=== PATIENT | male | born 1955 ===

== ENCOUNTER 2017-10-26 13:39 | Emergency (ER) | payer BC, OTHER ==
[2017-10-26 13:55] VITALS: TEMP 98
[2017-10-26 14:23] VITALS: RESP 22
[2017-10-26 14:24] VITALS: BP 154/103; PULSE 63; O2SAT 99
== END 2017-10-26 14:20 | disposition home or self-care (01) ==
LOC: ED 13:39
DX: M06.9 Rheumatoid arthritis, unspecified (principal); M25.511 Pain in right shoulder
CPT/HCPCS: 99282

== ENCOUNTER 2018-01-29 19:26 | Emergency (ER) | payer OTHER ==
[2018-01-29 19:27] VITALS: O2SAT 99
[2018-01-29 19:52] VITALS: BP 156/99; PULSE 92; RESP 20; TEMP 97.4
[2018-01-29] MEDS ORDERED: PANTOPRAZOLE SODIUM 40 MG ECT PO ONE ×2 (19:56→19:57)
== END 2018-01-29 20:06 | disposition home or self-care (01) ==
LOC: ED 19:26
DX: K21.9 Gastro-esophageal reflux disease without esophagitis (principal)
CPT/HCPCS: 99282; A9270-GY

== ENCOUNTER 2018-01-30 05:30 | Emergency (ER) | payer OTHER ==
[2018-01-30] MEDS ORDERED: ALBUTEROL/IPRATROPIUM 1 VIAL SOL INH PRN (06:04)
[2018-01-30 06:07] LABS: BASOPHILS % (AUTO) 1 % (0-3); EOSINOPHILS % (AUTO) 2 % (0-9); HEMATOCRIT 33 % (39-53); MEAN CORPUSCULAR HGB CONC 34.6 gm/dl (32.0-36.0); MEAN CORPUSCULAR VOLUME 82 fL (80-100); MONOCYTES % (AUTO) 5.8 % (0-12); NEUTROPHILS % (AUTO) 72.8 % (37-80)
[2018-01-30] MEDS ORDERED: ALBUTEROL/IPRATROPIUM 1 VIAL SOL ONE (06:13)
[2018-01-30 06:22] LABS: ALBUMIN 2.9 gm/dl (3.4-5.0); CALCIUM 7.9 mg/dl (8.5-10.1); POTASSIUM 3.1 mMol/L (3.5-5.1)
[2018-01-30] MEDS: ACETAMINOPHEN 325 MG PO ONE ×2 (06:30→06:35)
[2018-01-30] MEDS ORDERED: ACETAMINOPHEN 500 MG 500 MG TAB PO ONE (06:30)
[2018-01-30] MEDS ORDERED: ACETAMINOPHEN 500 MG 500 MG TAB ONE (06:41)
[2018-01-30 06:47] VITALS: TEMP 96.9
[2018-01-30 06:55] LABS: APPEARANCE,URINE Clear; BILIRUBIN,URINE NEGATIVE (NEGATIVE); COLOR,URINE Yellow; GLUCOSE, URINE (UA) NEGATIVE (NEGATIVE); KETONES,URINE NEGATIVE (NEGATIVE); LEUKOCYTE ESTERASE ,URINE NEGATIVE (NEGATIVE); NITRATE,URINE NEGATIVE (NEGATIVE); OCCULT BLOOD,URINE NEGATIVE (NEG-TRACE); PH,URINE 7.5; UROBILINOGEN,URINE 0.2 (0.2-1.0 EU)
[2018-01-30 07:09] VITALS: O2SAT 96
[2018-01-30] MEDS ORDERED: KETOROLAC TROMETHAMINE 30 MG/ML SOL IM ONE ×2 (07:17→07:18)
[2018-01-30] MEDS ORDERED: KETOROLAC TROMETHAMINE 30 MG/ML SOL ONE (07:18)
[2018-01-30 07:25] VITALS: BP 138/99; PULSE 92; RESP 30
[2018-01-30 07:41] LABS: RBC,URINE NEG (0-3AV/HPF); WBC,URINE NEG (0-5AV/HPF)
== END 2018-01-30 07:50 | disposition home or self-care (01) ==
LOC: ED 05:30
DX: M54.6 Pain in thoracic spine (principal); R06.00 Dyspnea, unspecified
CPT/HCPCS: 36415; 71046; 72070; 72120; 73521; 80053; 81001; 85025; 93005; 99285; J1885

== ENCOUNTER 2018-02-09 14:52 | Inpatient (IN) | payer OTHER ==
[2018-02-09] MEDS ORDERED: ALBUTEROL/IPRATROPIUM 1 VIAL SOL INH ONE (15:19)
[2018-02-09] MEDS ORDERED: CLONAZEPAM 0.5 MG TAB PO ONE (15:20)
[2018-02-09 15:38] LABS: BASOPHILS % (AUTO) 1 % (0-3); EOSINOPHILS % (AUTO) 5 % (0-9); HEMATOCRIT 36 % (39-53); MEAN CORPUSCULAR HGB CONC 31.7 gm/dl (32.0-36.0); MEAN CORPUSCULAR VOLUME 85 fL (80-100); NEUTROPHILS % (AUTO) 71.2 % (37-80)
[2018-02-09 15:53] LABS: CALCIUM 8.5 mg/dl (8.5-10.1); POTASSIUM 3.3 mMol/L (3.5-5.1)
[2018-02-09 16:02] LABS: ANISOCYTOSIS SLIGHT AMT; OVALOCYTES PRESENT; TARGET CELLS OCCASIONAL
[2018-02-09] MEDS ORDERED: FUROSEMIDE 40 MG SOL IV ONE (16:03)
[2018-02-09] MEDS ORDERED: FUROSEMIDE 40 MG SOL ONE (16:11)
[2018-02-09] MEDS ORDERED: ALBUTEROL/IPRATROPIUM 1 VIAL SOL ONE (16:11)
[2018-02-09] MEDS ORDERED: CLONAZEPAM 0.5 MG TAB ONE (16:12)
[2018-02-09] MEDS ORDERED: ENALAPRILAT 1.25 MG/ML IV ONE ×2 (16:59→17:01)
[2018-02-09] MEDS ORDERED: METOPROLOL TARTRATE 25 MG TAB PO ONE (17:15)
[2018-02-09] MEDS ORDERED: METOPROLOL TARTRATE 25 MG TAB ONE (17:20)
[2018-02-09] MEDS ORDERED: HYDROXYZINE HCL 25 MG PO PRN (17:26)
[2018-02-09] MEDS ORDERED: ACETAMINOPHEN 325 MG PO PRN (17:33)
[2018-02-09] MEDS ORDERED: ALUMINUM/MAGNESIUM 30 ML SUS PO PRN (17:33)
[2018-02-09 17:42] LABS: AMPHETAMINES NEGATIVE (NEGATIVE); METHADONE NEGATIVE (NEGATIVE); OPIATES(OP13) NEGATIVE (NEGATIVE); OXYCODONE(OXY) NEGATIVE (NEGATIVE); PROPOXYPHENE(PPX) NEGATIVE (NEGATIVE); TRICYCLIC ANTIDEPRESSANTS NEGATIVE (NEGATIVE)
[2018-02-09] MEDS ORDERED: SOLUMEDROL 125 MG/2 ML 125 MG/2 ML PDS IV ONE (18:00)
[2018-02-09 18:14] LABS: ABG PH 7.48 (7.35-7.45)
[2018-02-09] MEDS: ALBUTEROL/IPRATROPIUM 1 VIAL SOL INH SCH ×2 (18:19→23:42)
[2018-02-09] MEDS ORDERED: POTASSIUM CHLORIDE 10 MEQ CAPSULE PO SCH (21:00)
[2018-02-09] MEDS ORDERED: CLONAZEPAM 0.5 MG TAB PO SCH (21:00)
[2018-02-09] MEDS: METOPROLOL TARTRATE 25 MG TAB PO SCH (21:24)
[2018-02-09] MEDS: POTASSIUM CHLORIDE 10 MEQ TER PO SCH (21:32)
[2018-02-09] MEDS: FUROSEMIDE 40 MG SOL IV SCH (21:33)
[2018-02-09] MEDS: SOLUMEDROL 125 MG/2 ML 125 MG/2 ML PDS IV SCH (23:43)
[2018-02-10] MEDS: ALBUTEROL/IPRATROPIUM 1 VIAL SOL INH SCH ×4 (05:39→23:33)
[2018-02-10] MEDS: SOLUMEDROL 125 MG/2 ML 125 MG/2 ML PDS IV SCH ×4 (05:41→23:32)
[2018-02-10] MEDS: SODIUM CHLORIDE 0.9% FLUSH 10 ML SOL IV SCH ×8 (06:30→23:36)
[2018-02-10] MEDS: PANTOPRAZOLE SODIUM 40 MG ECT PO SCH (06:32)
[2018-02-10] MEDS ORDERED: OMEPRAZOLE 20 MG CAPSULE PO SCH (07:00)
[2018-02-10 07:32] LABS: BASOPHILS % (AUTO) 0 % (0-3); EOSINOPHILS % (AUTO) 0 % (0-9); HEMATOCRIT 36 % (39-53); MEAN CORPUSCULAR HGB CONC 32.2 gm/dl (32.0-36.0); MEAN CORPUSCULAR VOLUME 87 fL (80-100); MONOCYTES % (AUTO) 1.4 % (0-12); NEUTROPHILS % (AUTO) 87.7 % (37-80)
[2018-02-10 07:47] LABS: ALBUMIN 2.5 gm/dl (3.4-5.0); CALCIUM 8.1 mg/dl (8.5-10.1); POTASSIUM 3.4 mMol/L (3.5-5.1); THYROID STIMULATING HORMONE 0.593 uIU/ml (0.358-3.740)
[2018-02-10 08:17] LABS: ANISOCYTOSIS SLIGHT AMT; OVALOCYTES PRESENT; TARGET CELLS PRESENT
[2018-02-10] MEDS ORDERED: CLONAZEPAM 0.5 MG TAB PO PRN (08:20)
[2018-02-10] MEDS: POTASSIUM CHLORIDE 10 MEQ TER PO SCH ×2 (09:27→21:05)
[2018-02-10] MEDS: FOLIC ACID 1 MG TAB PO SCH (09:27)
[2018-02-10] MEDS: FUROSEMIDE 40 MG SOL IV SCH ×2 (09:29→19:30)
[2018-02-10] MEDS: METOPROLOL TARTRATE 25 MG TAB PO SCH ×2 (09:30→21:04)
[2018-02-10] MEDS: ENOXAPARIN 40 MG SOL SC SCH (09:31)
[2018-02-10] MEDS: LISINOPRIL 5 MG TAB PO SCH (09:32)
[2018-02-10] MEDS ORDERED: ALBUTEROL NEB SOL 2.5MG/3ML 1 VIAL SOL NEB PRN (14:12)
[2018-02-11] MEDS: ALBUTEROL/IPRATROPIUM 1 VIAL SOL INH SCH ×2 (06:04→11:51)
[2018-02-11] MEDS: SOLUMEDROL 125 MG/2 ML 125 MG/2 ML PDS IV SCH (06:05)
[2018-02-11] MEDS: SODIUM CHLORIDE 0.9% FLUSH 10 ML SOL IV SCH ×2 (06:05→06:15)
[2018-02-11] MEDS: FUROSEMIDE 40 MG SOL IV SCH (06:13)
[2018-02-11] MEDS: PANTOPRAZOLE SODIUM 40 MG ECT PO SCH (07:02)
[2018-02-11 07:32] LABS: CALCIUM 8.6 mg/dl (8.5-10.1); POTASSIUM 4.1 mMol/L (3.5-5.1)
[2018-02-11] MEDS ORDERED: ALBUTEROL HFA 60 PUFF/INHALER INH PRN (08:32)
[2018-02-11] MEDS: FOLIC ACID 1 MG TAB PO SCH (08:40)
[2018-02-11] MEDS: POTASSIUM CHLORIDE 10 MEQ TER PO SCH (08:40)
[2018-02-11] MEDS: METOPROLOL TARTRATE 25 MG TAB PO SCH (08:40)
[2018-02-11] MEDS: ENOXAPARIN 40 MG SOL SC SCH (08:41)
[2018-02-11] MEDS: LISINOPRIL 5 MG TAB PO SCH (08:42)
[2018-02-11] MEDS ORDERED: PREDNISONE 20 MG TAB PO SCH (09:00)
[2018-02-11] MEDS ORDERED: BUDESONIDE/FORMOTEROL 80/4.5 1 PUFF AER IH SCH (09:00)
[2018-02-11 10:34] VITALS: BP 122/78; TEMP 97.2
[2018-02-11 11:57] VITALS: PULSE 84; RESP 40; O2SAT 91
[2018-02-11] MEDS ORDERED: SODIUM CHLORIDE 0.9% FLUSH 10 ML SOL IV SCH (15:00)
== END 2018-02-11 12:30 | disposition home or self-care (01) | DRG 140 ==
LOC: ED 14:52 → ACUTE CARE 17:16
PROVIDERS: ADMIT Emergency Medicine; ATTEND Emergency Medicine
PROC: 5A09357 Assistance with Respiratory Ventilation, Less than 24 Consecutive Hours, Continuous Positive Airway Pressure (ICD-10-PCS; principal; 2018-02-09)
DX: J44.9 Chronic obstructive pulmonary disease, unspecified (principal); F41.9 Anxiety disorder, unspecified; Z72.0 Tobacco use; I51.7 Cardiomegaly; G47.33 Obstructive sleep apnea (adult) (pediatric)
CPT/HCPCS: 36415; 36600; 71045; 71046; 71275; 80048; 80053; 80305; 82803; 83735; 83880; 84443; 84484; 85025; 85378; 93005; 93306; 94150; 94640; 94660; 94664; 94762; 99285; J1650; J1940; J2930; Q9957; Q9967; A9270-GY; J3490

== ENCOUNTER 2018-04-05 10:27 | Emergency (ER) | payer OTHER ==
[2018-04-05 10:40] VITALS: RESP 24; TEMP 97.1; O2SAT 97
[2018-04-05 11:33] VITALS: BP 132/93; PULSE 84
== END 2018-04-05 11:13 | disposition home or self-care (01) ==
LOC: ED 10:27
DX: K04.7 Periapical abscess without sinus (principal)
CPT/HCPCS: 99282

== ENCOUNTER 2018-04-11 20:58 | Emergency (ER) | payer OTHER ==
[2018-04-11] MEDS ORDERED: ONDANSETRON 4 MG ODT BU ONE (21:26)
[2018-04-11] MEDS ORDERED: ONDANSETRON 4 MG ODT ONE (21:29)
[2018-04-11 21:45] VITALS: BP 150/101; PULSE 101; RESP 20; TEMP 96.4; O2SAT 99
== END 2018-04-11 22:18 | disposition home or self-care (01) ==
LOC: ED 20:58
DX: R11.0 Nausea (principal)
CPT/HCPCS: 99282; A9270-GY

== ENCOUNTER 2018-04-13 22:28 | Emergency (ER) | payer OTHER ==
[2018-04-13] MEDS ORDERED: ONDANSETRON 4 MG ODT BU ONE (22:58)
[2018-04-13] MEDS ORDERED: SODIUM CHLORIDE 0.9% 1000ML 1,000 ML IV SCH (23:00)
[2018-04-13] MEDS ORDERED: ONDANSETRON 4 MG ODT ONE (23:09)
[2018-04-13] MEDS ORDERED: SODIUM CHLORIDE 0.9% FLUSH 10 ML SOL IV PRN (23:13)
[2018-04-13 23:15] LABS: BASOPHILS % (AUTO) 1 % (0-3); EOSINOPHILS % (AUTO) 2 % (0-9); HEMATOCRIT 32 % (39-53); HEMOGLOBIN 11.2 gm/dl (13.5-17.7); LYMPHOCYTES % (AUTO) 22.4 % (10-50); MEAN CORPUSCULAR HEMOGLOBIN 28.2 pg (27.0-32.0); MONOCYTES % (AUTO) 1.4 % (0-12); NEUTROPHILS % (AUTO) 73.6 % (37-80)
[2018-04-13 23:16] LABS: MEAN CORPUSCULAR VOLUME 80 fL (80-100)
[2018-04-13 23:24] LABS: APPEARANCE,URINE Clear; BILIRUBIN,URINE NEGATIVE (NEGATIVE); COLOR,URINE Dark yellow; GLUCOSE, URINE (UA) NEGATIVE (NEGATIVE); KETONES,URINE NEGATIVE (NEGATIVE); LEUKOCYTE ESTERASE ,URINE NEGATIVE (NEGATIVE); NITRATE,URINE NEGATIVE (NEGATIVE); OCCULT BLOOD,URINE NEGATIVE (NEG-TRACE); PH,URINE 5.5
[2018-04-13] MEDS ORDERED: ALBUTEROL/IPRATROPIUM 1 VIAL SOL INH ONE (23:27)
[2018-04-13 23:29] LABS: ALBUMIN 2.9 gm/dl (3.4-5.0); BILIRUBIN,TOTAL 0.5 mg/dl (0.2-1.0); CALCIUM 7.9 mg/dl (8.5-10.1); CARBON DIOXIDE 24.2 mEq/L (21-32); CREATININE 1.11 mg/dl (0.80-1.30); POTASSIUM 4.1 mMol/L (3.5-5.1); TOTAL PROTEIN 7.3 gm/dl (6.4-8.2)
[2018-04-13 23:30] LABS: ALCOHOL 0.003 gm/dl (0.000-0.08)
[2018-04-13] MEDS ORDERED: ALBUTEROL/IPRATROPIUM 1 VIAL SOL ONE (23:31)
[2018-04-13 23:43] LABS: CRYSTALS NEGATIVE (0-3 AVE/HPF); EPITHELIAL CELLS NEGATIVE (SQUAMOUS); RBC,URINE NEG (0-3AV/HPF); WBC,URINE NEG (0-5AV/HPF)
[2018-04-13 23:44] VITALS: RESP 26
[2018-04-13 23:44] LABS: AMPHETAMINES NEGATIVE (NEGATIVE); BACTERIA NEGATIVE (< 1+); BARBITUATES NEGATIVE (NEGATIVE); BENZODIAZEPINES NEGATIVE (NEGATIVE); CANNABINOL(THC) NEGATIVE (NEGATIVE); COCAINE(COC) NEGATIVE (NEGATIVE); METHADONE NEGATIVE (NEGATIVE); METHAMPHETAMINES NEGATIVE (NEGATIVE); OPIATES(OP13) NEGATIVE (NEGATIVE); OXYCODONE(OXY) NEGATIVE (NEGATIVE); PROPOXYPHENE(PPX) NEGATIVE (NEGATIVE); TRICYCLIC ANTIDEPRESSANTS NEGATIVE (NEGATIVE)
[2018-04-13] MEDS ORDERED: LEVOFLOXACIN 500 MG TAB PO ONE (23:54)
[2018-04-14] MEDS ORDERED: LEVOFLOXACIN 500 MG TAB ONE (00:17)
[2018-04-14] MEDS ORDERED: PROCHLORPERAZINE MALEATE 5 MG TAB PO ONE (00:22)
[2018-04-14] MEDS ORDERED: PROCHLORPERAZINE MALEATE 5 MG TAB ONE (00:25)
[2018-04-14 00:59] VITALS: BP 134/96; PULSE 87; TEMP 96.5; O2SAT 93
== END 2018-04-14 00:48 | disposition home or self-care (01) ==
LOC: ED 22:28
DX: J18.9 Pneumonia, unspecified organism (principal); R11.0 Nausea; F41.9 Anxiety disorder, unspecified; J44.9 Chronic obstructive pulmonary disease, unspecified
CPT/HCPCS: 36415; 71046; 80053; 80305; 80307; 81001; 85025; 96365; 99283; 99284; Q0164; A9270-GY

== ENCOUNTER 2018-05-11 00:51 | Emergency (ER) | payer OTHER ==
[2018-05-11] MEDS ORDERED: HYDROMORPHONE 1 MG/ML SYRINGE IV ONE (01:05)
[2018-05-11] MEDS ORDERED: HYDROMORPHONE HCL 2 MG/ML SOL ONE ×2 (01:07→02:19)
[2018-05-11] MEDS ORDERED: FUROSEMIDE 40 MG SOL IV ONE (01:07)
[2018-05-11] MEDS ORDERED: FUROSEMIDE 40 MG SOL ONE (01:09)
[2018-05-11 01:54] LABS: ALBUMIN 2.2 gm/dl (3.4-5.0); BILIRUBIN,TOTAL 0.9 mg/dl (0.2-1.0); CALCIUM 8.4 mg/dl (8.5-10.1); CARBON DIOXIDE 31.8 mEq/L (21-32); CREATININE 1.11 mg/dl (0.80-1.30); HEMATOCRIT 32 % (39-53); HEMOGLOBIN 10.6 gm/dl (13.5-17.7); MEAN CORPUSCULAR HEMOGLOBIN 26.7 pg (27.0-32.0); MEAN CORPUSCULAR HGB CONC 33.3 gm/dl (32.0-36.0); MEAN CORPUSCULAR VOLUME 80 fL (80-100); POTASSIUM 3.1 mMol/L (3.5-5.1)
[2018-05-11] MEDS ORDERED: SODIUM CHLORIDE 0.9% FLUSH 10 ML SOL IV PRN (02:10)
[2018-05-11] MEDS ORDERED: HYDROMORPHONE HCL 2 MG/ML SOL IV ONE (02:17)
[2018-05-11 02:22] LABS: APPEARANCE,URINE Clear; BILIRUBIN,URINE 1+ (NEGATIVE); COLOR,URINE Dark yellow; GLUCOSE, URINE (UA) NEGATIVE (NEGATIVE); KETONES,URINE NEGATIVE (NEGATIVE); LEUKOCYTE ESTERASE ,URINE NEGATIVE (NEGATIVE); NITRATE,URINE NEGATIVE (NEGATIVE); OCCULT BLOOD,URINE NEGATIVE (NEG-TRACE); UROBILINOGEN,URINE >=8.0 (0.2-1.0 EU)
[2018-05-11 02:31] VITALS: TEMP 96.5
[2018-05-11 02:39] LABS: ANISOCYTOSIS SLIGHT AMT; BAND NEUTROPHILS % (MANUAL) 0 %; BASOPHILS % (MANUAL) 0 % (0-3); EOSINOPHILS % (MANUAL) 4 % (0-9); LYMPHOCYTES % (MANUAL) 80 % (10-50); MONOCYTES % (MANUAL) 8 % (0-12); NEUTROPHILS % (MANUAL) 8 % (37-80); OVALOCYTES PRESENT; POIKILOCYTOSIS SLIGHT AMT
[2018-05-11 03:05] LABS: HEMATOCRIT 32 % (39-53); HEMOGLOBIN 10.8 gm/dl (13.5-17.7); MEAN CORPUSCULAR HEMOGLOBIN 26.6 pg (27.0-32.0); MEAN CORPUSCULAR HGB CONC 33.3 gm/dl (32.0-36.0)
[2018-05-11 03:07] LABS: MEAN CORPUSCULAR VOLUME 80 fL (80-100)
[2018-05-11 03:22] LABS: BACTERIA TRACE (< 1+); CRYSTALS NEGATIVE (0-3 AVE/HPF); EPITHELIAL CELLS NEGATIVE (SQUAMOUS); ICTOTEST,URINE NEGATIVE (NEGATIVE); RBC,URINE NEG (0-3AV/HPF); WBC,URINE NEG (0-5AV/HPF)
[2018-05-11 03:31] VITALS: BP 130/88; PULSE 100; RESP 17; O2SAT 94
[2018-05-11 03:48] LABS: ANISOCYTOSIS SLIGHT AMT; BAND NEUTROPHILS % (MANUAL) 0 %; BASOPHILS % (MANUAL) 0 % (0-3); EOSINOPHILS % (MANUAL) 11 % (0-9); LYMPHOCYTES % (MANUAL) 79 % (10-50); MONOCYTES % (MANUAL) 2 % (0-12); NEUTROPHILS % (MANUAL) 8 % (37-80); OVALOCYTES PRESENT; POIKILOCYTOSIS SLIGHT AMT
[2018-05-11] MEDS ORDERED: CLOTRIMAZOLE 1% CREAM TOP ONE (04:01)
== END 2018-05-11 04:08 | disposition short-term general hospital (02) ==
LOC: ED 00:51
DX: I50.43 Acute on chronic combined systolic (congestive) and diastolic (congestive) heart failure (principal); D72.819 Decreased white blood cell count, unspecified; R60.0 Localized edema; I87.2 Venous insufficiency (chronic) (peripheral); R22.2 Localized swelling, mass and lump, trunk
CPT/HCPCS: 71045; 80053; 81001; 83880; 84484; 85007; 85027; 93005; 96374; 96375; 99284; 99285; J1170; J1940; A9270-GY

== ENCOUNTER 2018-06-02 08:08 | Emergency (ER) | payer OTHER ==
[2018-06-02] MEDS ORDERED: ONDANSETRON 4 MG ODT BU ONE (08:20)
[2018-06-02] MEDS ORDERED: ONDANSETRON 4 MG ODT ONE (08:25)
[2018-06-02 08:32] VITALS: RESP 28; TEMP 97.4
[2018-06-02] MEDS ORDERED: ALBUTEROL/IPRATROPIUM 1 VIAL SOL INH ONE (08:52)
[2018-06-02] MEDS ORDERED: SOLUMEDROL 125 MG/2 ML 125 MG/2 ML PDS IM ONE (08:52)
[2018-06-02] MEDS ORDERED: SOLUMEDROL 125 MG/2 ML 125 MG/2 ML PDS ONE (09:02)
[2018-06-02] MEDS ORDERED: ALBUTEROL/IPRATROPIUM 1 VIAL SOL ONE (09:03)
[2018-06-02 09:25] VITALS: O2SAT 93
[2018-06-02 09:46] VITALS: BP 125/93; PULSE 88
== END 2018-06-02 09:38 | disposition home or self-care (01) ==
LOC: ED 08:08
DX: K21.9 Gastro-esophageal reflux disease without esophagitis (principal)
CPT/HCPCS: 96372; 99282; 99283; J2930; A9270-GY

== ENCOUNTER 2018-06-08 07:00 | Emergency (ER) | payer OTHER ==
[2018-06-08 07:14] VITALS: RESP 20; TEMP 97.8
[2018-06-08] MEDS ORDERED: ONDANSETRON HCL 4 MG/2 ML SOL IV ONE (07:16)
[2018-06-08] MEDS ORDERED: SODIUM CHLORIDE 0.9% FLUSH 10 ML SOL IV PRN (07:16)
[2018-06-08] MEDS ORDERED: PANTOPRAZOLE SODIUM 40 MG/10 ML PDS IV ONE (07:17)
[2018-06-08] MEDS ORDERED: PANTOPRAZOLE SODIUM 40 MG/10 ML PDS ONE (07:35)
[2018-06-08] MEDS ORDERED: ONDANSETRON HCL 4 MG/2 ML SOL ONE (07:35)
[2018-06-08 07:46] LABS: HEMATOCRIT 36 % (39-53); HEMOGLOBIN 11.3 gm/dl (13.5-17.7); MEAN CORPUSCULAR HEMOGLOBIN 26.7 pg (27.0-32.0); MEAN CORPUSCULAR HGB CONC 31.6 gm/dl (32.0-36.0); MEAN CORPUSCULAR VOLUME 84 fL (80-100)
[2018-06-08] MEDS ORDERED: ALUMINUM/MAGNESIUM 30 ML SUS PO ONE (07:48)
[2018-06-08 08:01] LABS: ALBUMIN 2.8 gm/dl (3.4-5.0); BILIRUBIN,TOTAL 0.7 mg/dl (0.2-1.0); CALCIUM 8.4 mg/dl (8.5-10.1); CARBON DIOXIDE 32.5 mEq/L (21-32); CREATININE 0.96 mg/dl (0.80-1.30); POTASSIUM 3.7 mMol/L (3.5-5.1); TOTAL PROTEIN 6.4 gm/dl (6.4-8.2)
[2018-06-08] MEDS ORDERED: MORPHINE SULFATE 10 MG/ML SOL IV PRN (08:15)
[2018-06-08] MEDS ORDERED: NITROGLYCERIN 0.4 MG TAB SL ONE (08:57)
[2018-06-08] MEDS ORDERED: ASPIRIN 81 MG CHEWABLE CTB PO ONE ×2 (08:57→09:39)
[2018-06-08] MEDS ORDERED: ASPIRIN 81 MG CHEWABLE CTB ONE (08:58)
[2018-06-08 09:31] LABS: APPEARANCE,URINE Clear; BILIRUBIN,URINE NEGATIVE (NEGATIVE); COLOR,URINE Yellow; GLUCOSE, URINE (UA) NEGATIVE (NEGATIVE); KETONES,URINE NEGATIVE (NEGATIVE); LEUKOCYTE ESTERASE ,URINE NEGATIVE (NEGATIVE); NITRATE,URINE NEGATIVE (NEGATIVE); OCCULT BLOOD,URINE NEGATIVE (NEG-TRACE); PH,URINE 7.5
[2018-06-08 09:36] LABS: BACTERIA NEGATIVE (< 1+); CRYSTALS NEGATIVE (0-3 AVE/HPF); EPITHELIAL CELLS NEGATIVE (SQUAMOUS); RBC,URINE NEG (0-3AV/HPF); WBC,URINE NEG (0-5AV/HPF)
[2018-06-08] MEDS ORDERED: PIPERACILLIN/TAZOBACT 3.375 GM 3.375 GM in SODIUM CHLORIDE 0.9% 100 ML 100 ML IV ONE (09:39)
[2018-06-08] MEDS ORDERED: PIPERACILLIN/TAZOBACT 3.375 GM PDS IV ONE (09:50)
[2018-06-08 10:24] VITALS: BP 146/108; PULSE 92; O2SAT 94
== END 2018-06-08 10:13 | disposition short-term general hospital (02) ==
LOC: ED 07:00
DX: I21.4 Non-ST elevation (NSTEMI) myocardial infarction (principal); K80.00 Calculus of gallbladder with acute cholecystitis without obstruction; I50.9 Heart failure, unspecified
CPT/HCPCS: 36415; 74177; 80053; 81001; 82140; 83880; 84484; 85025; 85027; 93005; 96374; 96375; 99285; 99291; J2405; J2543; Q9967; A9270-GY

== ENCOUNTER 2018-06-14 01:27 | Emergency (ER) | payer OTHER ==
[2018-06-14] MEDS ORDERED: PROCHLORPERAZINE EDISYLATE 5 MG/ML SOL IM ONE (01:54)
[2018-06-14] MEDS ORDERED: ALBUTEROL NEB SOL 2.5MG/3ML 1 VIAL SOL NEB ONE (01:55)
[2018-06-14 01:58] VITALS: BP 135/100; TEMP 97.4
[2018-06-14] MEDS ORDERED: ALBUTEROL NEB SOL 2.5MG/3ML 1 VIAL SOL ONE (02:02)
[2018-06-14] MEDS ORDERED: PROCHLORPERAZINE EDISYLATE 5 MG/ML SOL ONE (02:02)
[2018-06-14 02:12] VITALS: O2SAT 100
[2018-06-14 02:25] VITALS: PULSE 78; RESP 22
== END 2018-06-14 02:48 | disposition home or self-care (01) ==
LOC: ED 01:27
DX: J43.1 Panlobular emphysema (principal); F17.200 Nicotine dependence, unspecified, uncomplicated; K80.00 Calculus of gallbladder with acute cholecystitis without obstruction; G47.00 Insomnia, unspecified
CPT/HCPCS: 96372; 99282; 99283; J0780; J7613; A9270-GY

== ENCOUNTER 2018-06-14 17:41 | Emergency (ER) | payer OTHER ==
[2018-06-14 18:30] VITALS: O2SAT 98
[2018-06-14] MEDS ORDERED: DIPHENHYDRAMINE 25 MG CAP PO ONE (20:03)
[2018-06-14] MEDS ORDERED: DIPHENHYDRAMINE 25 MG CAP ONE (20:40)
[2018-06-14 23:42] VITALS: BP 141/93; PULSE 77; RESP 28; TEMP 96.6
== END 2018-06-14 20:40 | disposition home or self-care (01) ==
LOC: ED 17:41
DX: G47.00 Insomnia, unspecified (principal)
CPT/HCPCS: 99282; A9270-GY

== ENCOUNTER 2018-06-15 01:12 | Emergency (ER) | payer OTHER ==
[2018-06-15] MEDS ORDERED: LIDOCAINE HCL 2% (VISCOUS) 20 ML SOL MT ONE (01:24)
[2018-06-15] MEDS ORDERED: ALUMINUM/MAGNESIUM 30 ML SUS PO ONE (01:24)
[2018-06-15] MEDS ORDERED: PANTOPRAZOLE SODIUM 40 MG ECT PO ONE ×2 (01:25→01:52)
[2018-06-15] MEDS ORDERED: LIDOCAINE HCL 2% (VISCOUS) 20 ML SOL ONE (01:26)
[2018-06-15] MEDS ORDERED: ALUMINUM/MAGNESIUM 30 ML SUS ONE (01:26)
[2018-06-15 01:38] VITALS: BP 139/99; PULSE 93; RESP 32; TEMP 96.9; O2SAT 97
== END 2018-06-15 02:05 | disposition home or self-care (01) ==
LOC: ED 01:12
DX: K21.9 Gastro-esophageal reflux disease without esophagitis (principal)
CPT/HCPCS: 99282; 99283; A9270-GY

== ENCOUNTER 2018-06-16 15:02 | Emergency (ER) | payer OTHER ==
[2018-06-16 15:15] LABS: BASOPHILS % (AUTO) 1 % (0-3); EOSINOPHILS % (AUTO) 2 % (0-9); HEMATOCRIT 40 % (39-53); HEMOGLOBIN 12.5 gm/dl (13.5-17.7); LYMPHOCYTES % (AUTO) 12.05 % (10-50); MEAN CORPUSCULAR HEMOGLOBIN 26.7 pg (27.0-32.0); MEAN CORPUSCULAR HGB CONC 31.1 gm/dl (32.0-36.0); MEAN CORPUSCULAR VOLUME 86 fL (80-100); MONOCYTES % (AUTO) 5.8 % (0-12); NEUTROPHILS % (AUTO) 79.1 % (37-80)
[2018-06-16 15:18] VITALS: TEMP 97.9
[2018-06-16] MEDS ORDERED: ALBUTEROL/IPRATROPIUM 1 VIAL SOL INH ONE (15:18)
[2018-06-16] MEDS ORDERED: SOLUMEDROL 125 MG/2 ML 125 MG/2 ML PDS IV ONE (15:18)
[2018-06-16] MEDS ORDERED: KETOROLAC TROMETHAMINE 30 MG/ML SOL IV ONE (15:18)
[2018-06-16 15:33] LABS: CALCIUM 8.2 mg/dl (8.5-10.1); CARBON DIOXIDE 26.4 mEq/L (21-32); CREATININE 1.02 mg/dl (0.80-1.30); POTASSIUM 4.6 mMol/L (3.5-5.1); TROP I 0.033 ng/ml (0.000-0.056)
[2018-06-16] MEDS ORDERED: KETOROLAC TROMETHAMINE 30 MG/ML SOL ONE (15:41)
[2018-06-16] MEDS ORDERED: SOLUMEDROL 125 MG/2 ML 125 MG/2 ML PDS ONE (15:41)
[2018-06-16] MEDS ORDERED: ALBUTEROL/IPRATROPIUM 1 VIAL SOL ONE (15:41)
[2018-06-16 15:45] LABS: ANISOCYTOSIS SLIGHT; HYPOCHROMASIA PRESENT
[2018-06-16 17:00] VITALS: BP 126/96; PULSE 85; RESP 27; O2SAT 99
== END 2018-06-16 16:40 | disposition home or self-care (01) ==
LOC: ED 15:02
DX: R09.1 Pleurisy (principal); J44.1 Chronic obstructive pulmonary disease with (acute) exacerbation
CPT/HCPCS: 36415; 71045; 80048; 83880; 84484; 85025; 93005; 96374; 96375; 99284; 99285; J1885; J2930

== ENCOUNTER 2018-07-05 00:17 | Emergency (ER) | payer OTHER ==
[2018-07-05] MEDS ORDERED: ASPIRIN 81 MG CHEWABLE CTB ONE (00:20)
[2018-07-05] MEDS ORDERED: NITROGLYCERIN 0.4 MG TAB SL PRN (00:33)
[2018-07-05] MEDS ORDERED: ASPIRIN 81 MG CHEWABLE CTB PO STA (00:33)
[2018-07-05] MEDS ORDERED: SODIUM CHLORIDE 0.9% FLUSH 10 ML SOL IV PRN (00:33)
[2018-07-05 00:38] VITALS: TEMP 97
[2018-07-05 00:40] LABS: BASOPHILS % (AUTO) 1 % (0-3); EOSINOPHILS % (AUTO) 1 % (0-9); HEMATOCRIT 45 % (39-53); HEMOGLOBIN 13.9 gm/dl (13.5-17.7); LYMPHOCYTES % (AUTO) 18.7 % (10-50); MEAN CORPUSCULAR HEMOGLOBIN 26.3 pg (27.0-32.0); MEAN CORPUSCULAR HGB CONC 31.2 gm/dl (32.0-36.0); MEAN CORPUSCULAR VOLUME 84 fL (80-100); MONOCYTES % (AUTO) 7.2 % (0-12)
[2018-07-05 00:51] LABS: POIKILOCYTOSIS SLIGHT AMT
[2018-07-05 00:52] LABS: SPHEROCYTES PRESENT; TARGET CELLS PRESENT; TEAR DROP CELLS PRESENT
[2018-07-05 00:55] LABS: BLOOD UREA NITROGEN 46 mg/dl (7-18); CALCIUM 8.5 mg/dl (8.5-10.1); CARBON DIOXIDE 27.8 mEq/L (21-32); CHLORIDE 102 mMol/L (98-107); CREATINE KINASE 22 U/L (39-308); CREATININE 1.16 mg/dl (0.80-1.30); GLUCOSE 96 mg/dl (74-106); POTASSIUM 4.7 mMol/L (3.5-5.1); SODIUM 134 mMol/L (136-145); TROP I < 0.017 ng/ml (0.000-0.056)
[2018-07-05 05:19] VITALS: RESP 19
[2018-07-05 05:20] VITALS: BP 113/77; PULSE 62; O2SAT 98
== END 2018-07-05 01:29 | disposition home or self-care (01) ==
LOC: ED 00:17
DX: R07.9 Chest pain, unspecified (principal)
CPT/HCPCS: 71045; 80048; 82550; 83880; 84484; 85025; 93005; 99284; 99285